=== PATIENT | female | born 1970 | race Caucasian/White ===

== ENCOUNTER 2017-10-17 22:38 | Emergency (ER) | payer OTHER ==
--- NOTE | 2017-10-17 23:25 | ED Physician Documentation ---
Female Urogenital Problems - HISTORIAN Historian: patient, spouse - HPI Stated Complaint: left groin/abd pain Chief Complaint: Female Urogenital Problems Onset: hours (2029) Location of Pain: flank pain Further Comments: yes (46 year old female patient presents with left flank and LLQ pain which started around 2029, took motrin, pain has become progressively worse 8-11/21. C/O nausea; LMP August.) - Vaginal Bleeding Sexual History: active - ROS CONST: denies: none GI/: nausea. denies: vomiting, diarrhea CVS/RESP: none EYES/ENT: none NEURO/PSYCH: none MS/SKIN/LYMPH: none - PAST HX Past History: endometriosis Other History: other (hypothyroidism) Surgeries/Procedures: BTL, cholecystectomy Home Medications: Ambulatory Orders Medication Instructions Recorded Levothyroxine Sodium 25 mcg PO DAILY u2 08/13/16 - SOCIAL HX Smoking History: non-smoker - FAMILY HX Family History: denies: none - VITAL SIGNS Vital Signs: Vital Signs Temp Pulse Resp BP Pulse Ox 98 F 63 18 126/57 99 10/17/17 22:39 10/17/17 22:39 10/17/17 22:39 10/17/17 22:39 10/17/17 22:39 - REVIEWED ASSESSMENTS Nursing Assessment Reviewed: Yes Vitals Reviewed: Yes Progress - Progress Progress: Pain improved after toradol. 510 pain; fentanyl given [address] findings with patient. Patient now states she is one her period. Patient did not report period to this provider or the RN. ED Results Lab/Radiology - Radiology Radiology Impressions: Computed tomography abdomen pelvis without contrast History: Left flank pain, left groin pain, and hematuria Findings: Transverse abdomen and pelvis sections are obtained without contrast revealing cholecystectomy and obesity. The lung bases, liver, pancreas, adrenals, spleen, and kidneys are unremarkable. Bowel loops exhibit normal caliber and wall thickness. There is no evidence of obstructive uropathy or nephrolithiasis. The lumbar spine is normal. Pelvic sections reveal unremarkable bowel loops including a normal appendix. The urinary bladder is normal. Left pelvic phleboliths are present. There is no uterine or adnexal mass. Impression: Obesity and cholecystectomy. No imaging correlate to explain the patient's symptoms. Electronically signed on Oct 18, 2017 12:05:45 AM CDT by: Chilango Jackson - Orders Orders: ED Orders Category Date Time Status Place IV Lock 1T Care 10/17/17 23:[address] ABD & PELVIS W/O CON Stat Exams 10/17/17 Ordered UA W/MICRO IF INDICATED Stat Lab 10/17/17 23:18 Ordered 0.9 % Sodium Chloride [Normal Saline] 1,000 ml Med 10/17/17 23:18 Discontinued IV NOW Ketorolac Tromethamine [Toradol] Med 10/17/17 23:18 Discontinued 30 mg IVP NOW ONE Ondansetron HCl/Pf [Zofran 4 mg/2 ml] Med 10/17/17 23:23 Once 4 mg IVP NOW ONE Female Urogenital Problems - EXAM General Appearance: moderate distress EENT: eye inspection normal, ENT inspection normal, pharynx normal, no signs of dehydration, HELEN, no nystagmus, TM's nml Respiratory: no resp. distress, breath sounds nml CVS: reg rate & rhythm, heart sounds normal, equal pulses, no murmur, no gallop , PMI nml, no JVD, no friction rub, 24 Abdomen: no organomegaly, no distention, nml bowel sounds, tenderness (LLQ), other (soft) Back: CVA tenderness (left) Skin: color nml, no rash, warm,dry Extremities: non-tender, normal range of motion, no evidence of injury, no edema , J, UTILITY TECHNICIAN Neuro: oriented X3, CN's nml as tested, motor nml, sensation nml, mood/affect nml Discharge Clincal Impression: LLQ pain, Left flank pain Hematuria Qualifiers: Hematuria type: unspecified type Qualified Code(s): R31.9 - Hematuria, unspecified Referrals: Primary Doctor,No [Primary Care Provider] - 2 Days Additional Instructions: Repeat UA in 2 weeks at your primary care doctor's office. You had 2+ blood in your urine tonight. Tylenol or ibuprofen as needed for discomfort. Return to the emergency department or call your doctor, if you are having severe abdominal pain, fever >101.0, or if there is blood in the vomit or diarrhea, or you cannot keep down liquids or solid food. Condition: Stable Disposition: 01 HOME, SELF-CARE Decision to Admit: NO Decision Time: 00:29
[2017-10-17] MEDS: ONDANSETRON HCL/PF 4 MG/ 2ML VIAL IVP ONE (23:40)
[2017-10-17] MEDS: 0.9 % SODIUM CHLORIDE 1,000 ML IV ONE (23:40)
[2017-10-17] MEDS: KETOROLAC TROMETHAMINE 30 MG/1ML VIAL IVP ONE (23:40)
[2017-10-18] MEDS: fentaNYL CITRATE/PF 100 MCG/ 2ML AMP IVP ONE (00:05)
[2017-10-18] MEDS: fentaNYL CITRATE/PF 100 MCG/ 2ML AMP ONE (01:06)
[2017-10-18 01:33] VITALS: BP 96/55
--- NOTE | 2017-10-18 06:51 | Diagnostic Imaging Report ---
JERMAINE WOLFE (WASH HELPER) - ER [facility] [id number] [facility] [address] [place], [place]. [address] Report Submission Date: Oct 18, 2017 12:05:45 AM CDT Patient Study Name: JERARDO ANDREA Date: Oct 17, 2017 11:43:15 PM CDT Modality Type: CT\SR Gender: F Description: CT ABD PELVIS W/O CO : 74 Institution: [facility] Physician: JERMAINE WOLFE (WASH HELPER) - ER Computed tomography abdomen pelvis without contrast History: Left flank pain, left groin pain, and hematuria Findings: Transverse abdomen and pelvis sections are obtained without contrast revealing cholecystectomy and obesity. The lung bases, liver, pancreas, adrenals, spleen, and kidneys are unremarkable. Bowel loops exhibit normal caliber and wall thickness. There is no evidence of obstructive uropathy or nephrolithiasis. The lumbar spine is normal. Pelvic sections reveal unremarkable bowel loops including a normal appendix. The urinary bladder is normal. Left pelvic phleboliths are present. There is no uterine or adnexal mass. Impression: Obesity and cholecystectomy. No imaging correlate to explain the patient's symptoms. Electronically signed on Oct 18, 2017 12:05:45 AM CDT by: Chilango MARTINES
== END 2017-10-18 01:00 | disposition home or self-care (01) ==
LOC: ED 22:38
DX: R10.9 Unspecified abdominal pain (principal); R31.9 Hematuria, unspecified
CPT/HCPCS: 74176; J1885; J2405; J3010; J7030; 96365; 96375; S1016